=== PATIENT | male | born 1965 | race African-American/Black ===

== ENCOUNTER 2016-10-28 10:37 | Inpatient (IN) | payer OTHER ==
--- NOTE | 2016-10-28 11:08 | PDOC ---
Attending Attestation - Resident Resident Name: WendyYeyo - ED Attending Attestation I have performed the following: I have examined & evaluated the patient, The case was reviewed & discussed with the resident, I agree w/resident's findings & plan, Exceptions are as noted - HPI HPI: 51 yo M history severe COPD, previously on the transplant list on [place] ( removed due to positive tobacco, now attempting to get back on) sent by Dr. Craft after he was seen in the office for increasing SOB, worsening cough. He was desatting to 75% with minimal exertion (just with speaking), requiring oxygen. He states that he chronically coughs, but now has worsening yellow sputum. Sent for IV abx, bronchodilators, given the severe hypoxia in the office. - Physicial Exam PE: GENERAL: Awake, alert, and fully oriented, in no acute distress HEAD: No signs of trauma EYES: PERRLA, EOMI, sclera anicteric, conjunctiva clear ENT: Auricles normal inspection, hearing grossly normal, nares patent, oropharynx clear without exudates. Dry mucosa NECK: Normal ROM, supple, no lymphadenopathy, JVD, or masses LUNGS: Dec air entry B/L, intermittent hacking cough. No wheezes, rales. + Scattered rhonchi. HEART: Regular rate and rhythm, normal S1 and S2, no murmurs, rubs or gallops ABDOMEN: Soft, nontender, normoactive bowel sounds. No guarding, no rebound. No masses EXTREMITIES: Normal range of motion, no edema. No clubbing or cyanosis. No cords, erythema, or tenderness NEUROLOGICAL: Cranial nerves II through XII grossly intact. Normal speech, normal gait SKIN: Warm, Dry, normal turgor, no rashes or lesions noted. 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
[2016-10-28] MEDS ORDERED: CEFTRIAXONE 1 GM in DEXTROSE 5%-WATER - 50 ML IVPB ONE (11:25)
[2016-10-28] MEDS ORDERED: AZITHROMYCIN 250 MG TABLET PO ONE (11:25)
[2016-10-28] MEDS ORDERED: ONDANSETRON 4 MG/2 ML VIAL IVPB ONE (11:27)
[2016-10-28] MEDS ORDERED: AZITHROMYCIN IVPB 250 ML IVPB ONE (12:11)
[2016-10-28] MEDS ORDERED: ONDANSETRON 4 MG/2 ML VIAL ONE (12:12)
[2016-10-28] MEDS ORDERED: CEFTRIAXONE 50 ML ONE (12:12)
[2016-10-28 12:16] LABS: MEAN PLT VOLUME 7.5 fl (7.5-11.1); WHITE BLOOD COUNT 3.6 K/mm3 (4.0-10.0)
[2016-10-28 12:23] LABS: NEUTROPHILS 67.9 % (42.8-82.8); RDW 15.5 % (11.9-15.9)
[2016-10-28 12:27] LABS: BASOPHIL 0.2 % (0-2.0); EOSINOPHIL 1.3 % (0-4.5); MCH 26.3 pg (25.7-33.7); MCHC 31.8 g/dl (32.0-35.9); MEAN CELL VOLUME 82.6 fl (80-96); PLATELET COUNT 264 K/MM3 (134-434)
[2016-10-28] MEDS ORDERED: AZITHROMYCIN IVPB 500 MG in DEXTROSE 5%-WATER - 250 ML IVPB ONE (12:40)
[2016-10-28 12:45] LABS: ALBUMIN 3.9 g/dl (3.4-5.0); ANION GAP 7 (8-16); BILIRUBIN,TOTAL 0.6 mg/dL (0.2-1.0); CALCIUM 9.3 mg/dL (8.5-10.1); CO2 31 mmol/L (21-32); CREATININE 0.9 mg/dL (0.7-1.3); GLUCOSE,RANDOM 81 mg/dL (74-106); SGOT/AST 20 U/L (15-37); SGPT/ALT 16 U/L (12-78); TOT PROT 8.1 g/dl (6.4-8.2)
[2016-10-28 12:48] LABS: ALK PHOS 113 U/L (45-117); CPK 130 IU/L (39-308); TROPONIN I < 0.02 ng/ml (0.00-0.05)
--- NOTE | 2016-10-28 13:24 | PDOC ---
History of Present Illness <Mandy Manley - Last Filed: 10/28/16 13:23> - General History Source: Patient Exam Limitations: No Limitations - History of Present Illness Initial Comments: 10/28/16 14:20 Patient is a 51M with history of COPD/emphysema here today complaining of shortness of breath. He has associated cough, nausea, diarrhea, fevers, and chills. These symptoms have been present for the past 2 weeks, worsening over that time period. He was seen today by Dr Craft because he is a lung transplant candidate who desatted to 75 in the office, who sent him from his office for admission. Patient denies chest pain and abdominal pain. <Yeyo Nguyen - Last Filed: 10/28/16 17:06> - General Chief Complaint: Shortness of Breath Stated Complaint: ADMIT (PCP SENT) sob Time Seen by Provider: 10/28/16 11:06 Past History - Past Medical History COPD: Yes (emphysema) - Psycho/Social/Smoking Cessation Hx Suicidal Ideation: No Smoking History: Former smoker Have you smoked in the past 12 months: Yes If you are a former smoker, when did you quit?: 2017 Information on smoking cessation initiated: No Hx Alcohol Use: No Drug/Substance Use Hx: No Substance Use Type: None <Mandy Manley - Last Filed: 10/28/16 13:23> <Yeyo Nguyen - Last Filed: 10/28/16 17:06> - Past Medical History Allergies/Adverse Reactions: Allergies Allergy/AdvReac Type Severity Reaction Status Date / Time No Known Allergies Allergy Verified 10/28/16 10:48 Home Medications: Ambulatory Orders Albuterol Sulfate Inhaler - [Ventolin Hfa Inhaler -] 1 - 2 inh PO Q4H 10/28/16 Tiotropium [place] [Spiriva] 1 inh IH DAILY 10/28/16 *Physical Exam - Vital Signs Last Vital Signs Temp Pulse Resp BP Pulse Ox 98.6 F 90 20 124/71 93 L 10/28/16 10:46 10/28/16 10:46 10/28/16 10:46 10/28/16 10:46 10/28/16 10:46 <Mandy Manley - Last Filed: 10/28/16 13:23> - Vital Signs Last Vital Signs Temp Pulse Resp BP Pulse Ox 98.6 F 90 20 124/71 93 L 10/28/16 10:46 10/28/16 10:46 10/28/16 10:46 10/28/16 10:46 10/28/16 10:46 - Physical Exam Comments: 10/28/16 15:27 GENERAL/CONSTITUTIONAL: Positive for fever and weakness. HEAD, EYES, EARS, NOSE AND THROAT: No change in vision. No sore throat. CARDIOVASCULAR: No chest pain. Positive for shortness of breath RESPIRATORY: Positive for cough and wheezing GASTROINTESTINAL: Positive for nausea and diarrhea. Negative for vomiting GENITOURINARY: No dysuria, frequency, or change in urination. SKIN: No rash NEUROLOGIC: Positive for headache. No loss of consciousness, or change in strength/sensation. HEMATOLOGIC/LYMPHATIC: No anemia, easy bleeding, or history of blood clots. ALLERGIC/IMMUNOLOGIC: No hives or skin allergy. <Yeyo Nguyen - Last Filed: 10/28/16 17:06> ED Treatment Course - LABORATORY CBC & Chemistry Diagram: 10/28/16 12:05 10/28/16 12:05 - ADDITIONAL ORDERS Additional order review: Laboratory Results 10/28/16 10/28/16 12:05 12:00 Sodium 139 Potassium 4.1 Chloride 101 Carbon Dioxide 31 Anion Gap 7 L BUN 9 Creatinine 0.9 Creat Clearance w eGFR > 60 Random Glucose 81 Lactic Acid 1.1 Calcium 9.3 Total Bilirubin 0.6 AST 20 ALT 16 Alkaline Phosphatase 113 Creatine Kinase 130 Troponin I < 0.02 Total Protein 8.1 Albumin 3.9 10/28/16 12:05 RBC 4.15 MCV 82.6 MCHC 31.8 L RDW 15.5 MPV 7.5 Neutrophils % 67.9 Lymphocytes % 20.9 Monocytes % 9.7 Eosinophils % 1.3 Basophils % 0.2 - Medications Given in the ED: ED Medications Discontinued Medications Generic Name Dose Route Start Last Admin Trade Name Freq PRN Reason Stop Dose Admin Azithromycin 500 mg 10/28/16 11:25 10/28/16 13:04 Zithromax - PO 10/28/16 11:26 Not Given ONCE ONE Ceftriaxone Sodium 1 gm/ 50 mls @ 100 mls/hr 10/28/16 11:25 10/28/16 12:20 Dextrose IVPB 10/28/16 11:54 100 mls/hr ONCE ONE Administration Ondansetron HCl 4 mg 10/28/16 11:27 10/28/16 12:20 Zofran Injection IVPB 10/28/16 11:28 4 mg ONCE ONE Administration <Mandy Manley - Last Filed: 10/28/16 13:23> - LABORATORY CBC & Chemistry Diagram: 10/28/16 12:05 10/28/16 12:05 - ADDITIONAL ORDERS Additional order review: Laboratory Results 10/28/16 10/28/16 12:05 12:00 Sodium 139 Potassium 4.1 Chloride 101 Carbon Dioxide 31 Anion Gap 7 L BUN 9 Creatinine 0.9 Creat Clearance w eGFR > 60 Random Glucose 81 Lactic Acid 1.1 Calcium 9.3 Total Bilirubin 0.6 AST 20 ALT 16 Alkaline Phosphatase 113 Creatine Kinase 130 Troponin I < 0.02 Total Protein 8.1 Albumin 3.9 10/28/16 12:05 RBC 4.15 MCV 82.6 MCHC 31.8 L RDW 15.5 MPV 7.5 Neutrophils % 67.9 Lymphocytes % 20.9 Monocytes % 9.7 Eosinophils % 1.3 Basophils % 0.2 - RADIOLOGY Radiology Studies Ordered: Category Date Time Status CHEST X-RAY PORTABLE* [RAD] Stat Radiology 10/28/16 11:24 Completed - Medications Given in the ED: ED Medications Discontinued Medications Generic Name Dose Route Start Last Admin Trade Name Keith PRN Reason Stop Dose Admin Acetaminophen 650 mg 10/28/16 13:39 10/28/16 13:47 Tylenol - PO 10/28/16 13:40 650 mg ONCE ONE Administration Albuterol/Ipratropium 1 amp 10/28/16 13:30 10/28/16 13:48 Duoneb - NEB 10/28/16 14:16 1 amp Q15M [facility] Administration Azithromycin 500 mg 10/28/16 11:25 10/28/16 13:04 Zithromax - PO 10/28/16 11:26 Not Given ONCE ONE Ceftriaxone Sodium 1 gm/ 50 mls @ 100 mls/hr 10/28/16 11:25 10/28/16 12:20 Dextrose IVPB 10/28/16 11:54 100 mls/hr ONCE ONE Administration Azithromycin 500 mg/ Dextrose 250 mls @ 250 mls/hr 10/28/16 12:40 10/28/16 13: 04 IVPB 10/28/16 13:39 250 mls/hr ONCE ONE Administration Ondansetron HCl 4 mg 10/28/16 11:27 10/28/16 12:20 Zofran Injection IVPB 10/28/16 11:28 4 mg ONCE ONE Administration <Yeyo Nguyen - Last Filed: 10/28/16 17:06> Medical Decision Making - Medical Decision Making 10/28/16 15:29 Patient is a 51M with history of COPD/emphysema here today and complaining of shortness of breath. Prior CT reviewed and patient discussed with Dr Craft. Patient has history of extensive COPD/emphysema, with symptoms concerning for pneumonia. Vital signs stable and normal. Will do CBC, CMP, BC, Lactate, CXR and ECG. Will treat with ceftriaxone and azithromycin. Given tylenol for headache and zofran for nausea. 10/28/16 15:31 CBC shows WBC 3.6, otherwise normal. CMP normal. Lactate normal. BC pending. ECG shows normal sinus rhythm, normal rate, normal axis. QTc 431, PA 174. T wave inversions in V2 and V3, no ST elevations. No prior EKG in system to compare to. 10/28/16 16:[address] Craft for inpatient treatment due to increasing SOB and O2 requirement to maintain saturation. Desatting to low 90s with conversation while on nasal cannula. <Yeyo Nguyen - Last Filed: 10/28/16 17:06> *DC/Admit/Observation/Transfer - Discharge Dispostion Admit: Yes <Mandy Manley - Last Filed: 10/28/16 13:23> <Yeyo Nguyen - Last Filed: 10/28/16 17:06> Diagnosis at time of Disposition: Pneumonia Qualifiers: Pneumonia type: due to unspecified organism Laterality: right Lung location: lower lobe of lung Qualified Code(s): J18.1 - Lobar pneumonia, unspecified organism - Discharge Dispostion Condition at time of disposition: Guarded - Referrals
[2016-10-28] MEDS ORDERED: ACETAMINOPHEN 325 MG TABLET (FP) PO ONE (13:39)
[2016-10-28] MEDS ORDERED: ALBUTEROL SO4 2.5/IPRATROPIUM 0.5 INH SOL 3 ML VIAL.NEB. NEB ONE (13:40)
[2016-10-28] MEDS ORDERED: ACETAMINOPHEN 325 MG TABLET (FP) ONE (13:41)
[2016-10-28] MEDS: ALBUTEROL SO4 2.5/IPRATROPIUM 0.5 INH SOL 3 ML VIAL.NEB. NEB SCH ×5 (13:42→21:34)
--- NOTE | 2016-10-28 15:44 | EKG ---
Test Reason : Blood Pressure : / mmHG Vent. Rate : 072 BPM Atrial Rate : 072 BPM P-R Int : 174 ms QRS Dur : 094 ms QT Int : 394 ms P-R-T Axes : 045 -08 022 degrees QTc Int : 431 ms NORMAL SINUS RHYTHM ANTERIOR INFARCT , AGE UNDETERMINED ABNORMAL ECG NO PREVIOUS ECGS AVAILABLE Confirmed by SOHAIL ACOSTA, HORACE ([id number]) on 10/28/2016 3:44:31 PM Referred By: Confirmed By:HORACE SAUCEDA MD
[2016-10-28 18:22] VITALS: BMI 24.0
[2016-10-28] MEDS ORDERED: PNEUMOC 13-VAL CONJ-DIP CRM/PF 0.5 ML DISP.SYRIN IM ONE (18:47)
--- NOTE | 2016-10-28 22:08 | CONSULT ---
Consultation: REQUESTING PROVIDER: CONSULT REQUEST: We have been asked to medically evaluate this patient for shortness of breath. HISTORY OF PRESENT ILLNESS: Pt is a 51 y/o M with PMH COPD, PONCE, Pulm HTN who presented to outpatient office with shortness of breath. Pt is admitted for acute respiratory failure. Pt was desatting to 75% in the office and requires O2 to maintain saturation. Pt has progressive fibrotic lung disease and is waiting for lung transplant. In office, pt was very short of breath and had cough productive of small amounts of clear sputum. Denies nausea, vomiting, diarrhea, dysuria. REVIEW OF SYSTEMS: CONSTITUTIONAL: Absent: fever, chills, diaphoresis, generalized weakness, malaise, loss of appetite, weight change HEENT: Absent: rhinorrhea, nasal congestion, throat pain, throat swelling, difficulty swallowing, mouth swelling, ear pain, eye pain, visual changes CARDIOVASCULAR: Absent: chest pain, syncope, palpitations, irregular heart rate, lightheadedness , peripheral edema RESPIRATORY: cough, shortness of breath Absent: , dyspnea with exertion, orthopnea, wheezing, stridor, hemoptysis GASTROINTESTINAL: Absent: abdominal pain, abdominal distension, nausea, vomiting, diarrhea, constipation, melena, hematochezia GENITOURINARY: Absent: dysuria, frequency, urgency, hesitancy, hematuria, flank pain, genital pain MUSCULOSKELETAL: Absent: myalgia, arthralgia, joint swelling, back pain, neck pain SKIN: Absent: rash, itching, pallor HEMATOLOGIC/IMMUNOLOGIC: Absent: easy bleeding, easy bruising, lymphadenopathy, frequent infections ENDOCRINE: Absent: unexplained weight gain, unexplained weight loss, heat intolerance, cold intolerance NEUROLOGIC: Absent: headache, focal weakness or paresthesias, dizziness, unsteady gait, seizure, mental status changes, bladder or bowel incontinence PSYCHIATRIC: Absent: anxiety, depression, suicidal or homicidal ideation, hallucinations. PHYSICAL EXAMINATION Vital Signs - 24 hr 10/28/16 10/28/16 18:17 18:32 Temperature 98.6 F Pulse Rate 98 H Respiratory 18 Rate Blood Pressure 128/78 O2 Sat by Pulse 99 Oximetry (%) GENERAL: Awake, alert, and fully oriented, in some respiratory distress. HEAD: Normal with no signs of trauma. EYES: extraocular movements intact, sclera anicteric, conjunctiva clear. No lid lag. EARS, NOSE, THROAT: nares patent, oropharynx clear without exudates. Moist mucous membranes. NECK: Normal range of motion, supple without lymphadenopathy, JVD, or masses. LUNGS: b/l air entry with some crackles. No wheezes. No accessory muscle use. HEART: Regular rate and rhythm, normal S1 and S2 without murmur, rub or gallop. ABDOMEN: Soft, nontender, not distended, normoactive bowel sounds, no guarding, no rebound, no masses. No hepatomegaly or splenomegaly. MUSCULOSKELETAL: Normal range of motion at all joints. No bony deformities or tenderness. No CVA tenderness. UPPER EXTREMITIES: 2+ pulses, warm, well-perfused. No cyanosis. No clubbing. Cap refill <2 seconds. No peripheral edema. LOWER EXTREMITIES: 2+ pulses, warm, well-perfused. No calf tenderness. No peripheral edema. NEUROLOGICAL: Cranial nerves II-XII intact. Normal speech. Normal gait. PSYCHIATRIC: Cooperative. Good eye contact. Appropriate mood and affect. SKIN: Warm, dry, normal turgor, no rashes or lesions noted. Active Medications Generic Name Dose Route Start Last Admin Trade Name Freq PRN Reason Stop Dose Admin Acetaminophen 650 mg 10/28/16 19:20 Tylenol - PO Q4H PRN TEMP >101 Albuterol/Ipratropium 1 amp 10/28/16 22:00 10/28/16 21:34 Duoneb - NEB 1 amp Q4HWA [facility] Administration Azithromycin 500 mg 10/29/16 10:00 Zithromax 500mg Ivpb (Pre-Docked) IVPB DAILY [facility] Budesonide/Formoterol Fumarate 2 puff 10/28/16 19:30 Symbicort 80/4.5mcg - IH Q12H [facility] Ceftriaxone Sodium 1 gm/ 50 mls @ 100 mls/hr 10/29/16 10:00 Dextrose IVPB DAILY [facility] Methylprednisolone Sodium Succinate 40 mg 10/28/16 19:30 Solu-Medrol - IVPB Q6H [facility] ASSESSMENT/PLAN: Pt is a 51 y/o M with PMH COPD, PONCE, Pulm HTN who presented to outpatient office with shortness of breath admitted for respiratory failure. #respiratory failure -O2 -monitor saturation -CT surg consult for possible temporizing procedure - pt waiting for lung transplant -emperic ABx given in ED to cover possible PNA Dispo: We will continue to follow the patient. Thank you for this consultative opportunity. Win Bueno MD PGY-1, Pulmonology service Visit type - Emergency Visit Emergency Visit: No - New Patient This patient is new to me today: No - Critical Care Critical Care patient: No
[2016-10-28] MEDS: methylPREDNISolone NA SUCC 40 MG/1 ML VIAL IVPB SCH (22:43)
[2016-10-28] MEDS: BUDESONIDE/FORMETEROL FUMARATE 80/4.5 mcg INHALER IH SCH (22:44)
[2016-10-29] MEDS: methylPREDNISolone NA SUCC 40 MG/1 ML VIAL IVPB SCH ×5 (02:39→21:06)
[2016-10-29] MEDS: ALBUTEROL SO4 2.5/IPRATROPIUM 0.5 INH SOL 3 ML VIAL.NEB. NEB SCH ×6 (06:52→22:36)
[2016-10-29] MEDS: BUDESONIDE/FORMETEROL FUMARATE 80/4.5 mcg INHALER IH SCH ×2 (06:55→18:49)
[2016-10-29] MEDS: ACETAMINOPHEN 325 MG TABLET (FP) PO PRN ×2 (06:57→21:06)
[2016-10-29] MEDS ORDERED: cefTRIAXone SODIUM 1 GM VIAL ONE (09:22)
[2016-10-29] MEDS ORDERED: DEXTROSE 5%-WATER - 50 ML IVPB ONE (09:22)
[2016-10-29] MEDS ORDERED: AZITHROMYCIN IVPB 500 MG/250 ML D5W PRE-DOCKED IVPB SCH (10:00)
--- NOTE | 2016-10-29 10:33 | PN ---
Physical Exam: SUBJECTIVE: Patient seen and examined at bedside. No acute events overnight. Pt sitting comfortably in bed, currently getting neb treatment. Pt complains of bilateral mild foot pain, which he states sometimes limits his ability to walk for extended periods. Denies cough, fever, malaise, dysuria. OBJECTIVE: Vital Signs Period Temp Pulse Resp BP Sys/Phillips Pulse Ox Last 24 Hr 97.9 F-98.7 F 82-98 18-20 119-151/78-97 95-99 GENERAL: The patient is awake, alert, and fully oriented, in no acute distress. HEAD: Normal with no signs of trauma. EYES: sclera anicteric, conjunctiva clear. No ptosis. ENT: oropharynx clear without exudates, moist mucous membranes. NECK: Trachea midline, full range of motion, supple. LUNGS: Breath sounds equal, clear to auscultation bilaterally, no wheezes, no crackles, no accessory muscle use. HEART: Regular rate and rhythm, S1, S2 without murmur, rub or gallop. ABDOMEN: Soft, nontender, nondistended, normoactive bowel sounds, no guarding, no rebound, no hepatosplenomegaly, no masses. EXTREMITIES: 2+ pulses, warm, well-perfused, no edema. NEUROLOGICAL: Cranial nerves II through XII grossly intact. Normal speech, gait not observed. PSYCH: Normal mood, normal affect. SKIN: Warm, dry, normal turgor, no rashes or lesions noted Active Medications Generic Name Dose Route Start Last Admin Trade Name Freq PRN Reason Stop Dose Admin Acetaminophen 650 mg 10/28/16 19:20 10/29/16 06:57 Tylenol - PO 650 mg Q4H PRN Administration TEMP >101 Albuterol/Ipratropium 1 amp 10/28/16 22:00 10/29/16 06:52 Duoneb - NEB 1 amp Q4HWA [facility] Administration Azithromycin 500 mg 10/29/16 10:00 Zithromax 500mg Ivpb (Pre-Docked) IVPB DAILY [facility] Budesonide/Formoterol Fumarate 2 puff 10/28/16 19:30 10/29/16 06:55 Symbicort 80/4.5mcg - IH 2 puff Q12H [facility] Administration Ceftriaxone Sodium 1 gm/ 50 mls @ 100 mls/hr 10/29/16 10:00 Dextrose IVPB DAILY [facility] Methylprednisolone Sodium Succinate 40 mg 10/29/16 09:32 10/29/16 09:47 Solu-Medrol - IVPB 40 mg Q6H-IV [facility] Administration ASSESSMENT/PLAN: Pt is a 51 y/o M with PMH COPD, PONCE, Pulm HTN who presented to outpatient office with shortness of breath admitted for respiratory failure. #respiratory failure -O2 -nebs -rocephin -monitor saturation -Pt waiting for lung transplant -pending CT surg consult for possible temporizing procedure Dispo: We will continue to follow the patient. Thank you for this consultative opportunity. Win Bueno MD PGY-1, Pulmonology service Visit type - Emergency Visit Emergency Visit: No - New Patient This patient is new to me today: No - Critical Care Critical Care patient: No - Discharge Referral Referred to [facility] No
[2016-10-29] MEDS: CEFTRIAXONE 1 GM in DEXTROSE 5%-WATER - 50 ML IVPB SCH (10:50)
--- NOTE | 2016-10-29 14:12 | PN ---
Teaching Attending Note Name of Resident: Win Bueno ATTENDING PHYSICIAN STATEMENT I saw and evaluated the patient. I reviewed the resident's note and discussed the case with the resident. I agree with the resident's findings and plan as documented. PULMONARY ALERT,COMFORTABLE AT REST,-CP,+ COUGH. O2 SAT 97% ON NASAL O2 IMP ACUTE ON CHRONIC HYPOXEMIC RESPIRATORY FAILURE END STAGE COPD ?ILD PONCE PULMONARY HTN ANXIETY PLAN INHALED BRONCHODILATORS O2 CPAP A1A LEVEL XANAX .[address] HARVEY Problem List - Problems (1) Acute and chronic respiratory failure with hypoxia Code(s): J96.21 - ACUTE AND CHRONIC RESPIRATORY FAILURE WITH HYPOXIA (2) COPD (chronic obstructive pulmonary disease) Code(s): J44.9 - CHRONIC OBSTRUCTIVE PULMONARY DISEASE, UNSPECIFIED (3) Sleep apnea Code(s): G47.30 - SLEEP APNEA, UNSPECIFIED (4) Pulmonary hypertension Code(s): I27.2 - OTHER SECONDARY PULMONARY HYPERTENSION
[2016-10-29] MEDS: ROFLUMILAST 500 MCG TABLET PO SCH (16:53)
[2016-10-29] MEDS: ALPRAZolam 0.25 MG TABLET PO PRN (16:55)
[2016-10-30] MEDS: methylPREDNISolone NA SUCC 40 MG/1 ML VIAL IVPB SCH ×3 (03:09→22:00)
[2016-10-30] MEDS: ACETAMINOPHEN 325 MG TABLET (FP) PO PRN ×3 (03:56→21:18)
[2016-10-30] MEDS: ALBUTEROL SO4 2.5/IPRATROPIUM 0.5 INH SOL 3 ML VIAL.NEB. NEB SCH ×5 (06:48→23:16)
--- NOTE | 2016-10-30 07:38 | CONSULT ---
Consult - text type - Consultation Consultation Note: Thoracic Surgery Consultation: Pt seen and examined. Consulted for possible bullectomy in this 51 year-old with COPD and progressive pulmonary fibrosis (s/p biopsy on left side) who is listed for lung transplant at [facility] and recently delayed for transplant due to positive nicotine test. He has been admitted for acute on chronic respiratory failure with hypoxia. I have reviewed his images and seen and examined the patient. I don't think he would benefit significantly from a temporizing procedure for the following risk factors: pulmonary hypertension, inability to tolerate single-lung ventilation (necessitating thoracotomy rather than VATS), not ideal anatomy (has superior segment bullae surrounded by smaller bullae down to hilum increasing risk of bronchopleural fistula). He has a high mortality risk (>10%) with any surgery except lung transplantation. I have spent 40 minutes on this consultation with greater than 50% involved in counseling and coordination of care including taking a history, physical, reviewing his images, and discussion with Dr. Craft.
[2016-10-30] MEDS: BUDESONIDE/FORMETEROL FUMARATE 80/4.5 mcg INHALER IH SCH ×2 (08:52→19:30)
[2016-10-30] MEDS ORDERED: cefTRIAXone SODIUM 1 GM VIAL ONE (08:58)
[2016-10-30] MEDS ORDERED: DEXTROSE 5%-WATER - 50 ML IVPB ONE (08:58)
[2016-10-30] MEDS: CEFTRIAXONE 1 GM in DEXTROSE 5%-WATER - 50 ML IVPB SCH (09:01)
[2016-10-30] MEDS: ROFLUMILAST 500 MCG TABLET PO SCH (09:39)
--- NOTE | 2016-10-30 11:20 | PN ---
Progress Note (short form) - Note Progress Note: PULMONARY Still with dyspnea and desaturates with exertion. +cough with yellow sputum in AM but nonproductive as the day progresses. No fevers. Last Vital Signs Temp Pulse Resp BP Pulse Ox 97.7 F 78 20 140/80 99 10/30/16 10:00 10/30/16 10:00 10/30/16 10:00 10/30/16 10:00 10/30/16 09:50 Gen: NAD at rest Heart: RRR Lung: basilar rales Abd: soft, nontender Ext: no edema CBC, BMP 10/28/16 12:05 10/28/16 12:05 Active Medications Acetaminophen (Tylenol -) 650 mg PO Q4H PRN PRN Reason: TEMP >101 Last Admin: 10/30/16 08:51 Dose: 650 mg Albuterol/Ipratropium (Duoneb -) 1 amp NEB Q4HWA [facility] Last Admin: 10/30/16 09:50 Dose: 1 amp Alprazolam (Xanax -) 0.25 mg PO Q6H PRN PRN Reason: ANXIETY Last Admin: 10/29/16 16:55 Dose: 0.25 mg Budesonide/Formoterol Fumarate (Symbicort 80/4.5mcg -) 2 puff IH Q12H [facility] Last Admin: 10/30/16 08:52 Dose: 2 puff Ceftriaxone Sodium 1 gm/ (Dextrose) 50 mls @ 100 mls/hr IVPB DAILY [facility] Last Admin: 10/30/16 09:01 Dose: 100 mls/hr Azithromycin 500 mg/ Dextrose 250 mls @ 250 mls/hr IVPB DAILY [facility] Methylprednisolone Sodium Succinate (Solu-Medrol -) 40 mg IVPB Q6H-IV [facility] Last Admin: 10/30/16 09:01 Dose: 40 mg Roflumilast (Daliresp -) 500 mcg PO DAILY [facility] Last Admin: 10/30/16 09:39 Dose: 500 mcg A/P Acute on Chronic Hypoxic Respiratory Failure End Stage COPD Acute COPD Exacerbation r/o Pneumonia Interstitial Lung Disease Pulmonary HTN PONCE Anxiety - continue antibiotics - continue medrol, can decrease to q8h - inhaled bronchodilators - antianxiolytics prn - O2 to keep SpO2 >90% - cough suppressants at night - DVT prophylaxis
[2016-10-30] MEDS: AZITHROMYCIN IVPB 500 MG in DEXTROSE 5%-WATER - 250 ML IVPB SCH (12:18)
[2016-10-30] MEDS ORDERED: methylPREDNISolone NA SUCC 40 MG/1 ML VIAL IVPB SCH (18:00)
[2016-10-30] MEDS: ALPRAZolam 0.25 MG TABLET PO PRN (21:17)
[2016-10-30] MEDS: guaiFENesin/CODEINE 5 ML UNIT-DOSE CUPS PO PRN (21:18)
[2016-10-31] MEDS ORDERED: methylPREDNISolone NA SUCC 40 MG/1 ML VIAL IVPB SCH (01:03)
[2016-10-31] MEDS: ALPRAZolam 0.25 MG TABLET PO PRN ×2 (03:55→21:08)
[2016-10-31] MEDS: guaiFENesin/CODEINE 5 ML UNIT-DOSE CUPS PO PRN ×3 (03:55→18:16)
[2016-10-31] MEDS: methylPREDNISolone NA SUCC 40 MG/1 ML VIAL IVPB SCH ×3 (06:13→21:03)
[2016-10-31] MEDS: ALBUTEROL SO4 2.5/IPRATROPIUM 0.5 INH SOL 3 ML VIAL.NEB. NEB SCH ×5 (06:48→21:44)
[2016-10-31 08:03] LABS: BASOPHIL 0.2 % (0-2.0); MCH 26.2 pg (25.7-33.7); MCHC 31.8 g/dl (32.0-35.9); MEAN CELL VOLUME 82.3 fl (80-96); MEAN PLT VOLUME 7.6 fl (7.5-11.1); NEUTROPHILS 84.5 % (42.8-82.8); PLATELET COUNT 287 K/MM3 (134-434); RDW 15.4 % (11.9-15.9)
[2016-10-31 08:26] LABS: ANION GAP 7 (8-16); CO2 31 mmol/L (21-32); CREATININE 0.9 mg/dL (0.7-1.3); GLUCOSE,RANDOM 106 mg/dL (74-106); MAGNESIUM 2.6 mg/dL (1.8-2.4); PHOSPHOROUS 3.3 mg/dL (2.5-4.9)
[2016-10-31] MEDS ORDERED: DEXTROSE 5%-WATER - 50 ML IVPB ONE (09:21)
[2016-10-31] MEDS ORDERED: PT OWN MED DRAWER 7, Y5N ONE (09:21)
[2016-10-31] MEDS ORDERED: cefTRIAXone SODIUM 1 GM VIAL ONE (09:21)
[2016-10-31] MEDS: BUDESONIDE/FORMETEROL FUMARATE 80/4.5 mcg INHALER IH SCH ×2 (09:30→21:03)
[2016-10-31] MEDS: ENOXAPARIN NA (PORCINE) 40 MG/0.4 ML DISP.SYRIN SQ SCH (09:31)
[2016-10-31] MEDS: AZITHROMYCIN IVPB 500 MG in DEXTROSE 5%-WATER - 250 ML IVPB SCH (09:32)
[2016-10-31] MEDS: CEFTRIAXONE 1 GM in DEXTROSE 5%-WATER - 50 ML IVPB SCH (09:38)
[2016-10-31] MEDS: ROFLUMILAST 500 MCG TABLET PO SCH (09:39)
--- NOTE | 2016-10-31 11:39 | PN ---
Progress Note (short form) - Note Progress Note: PULMONARY +cough with white sputum in AM, feels cough suppressant is helping. No fevers. Last Vital Signs Temp Pulse Resp BP Pulse Ox 98.6 F 88 20 145/87 95 10/31/16 09:27 10/31/16 09:27 10/31/16 09:27 10/31/16 09:27 10/31/16 09:00 Gen: NAD at rest Heart: RRR Lung: basilar rales Abd: soft, nontender Ext: no edema CBC, BMP 10/31/16 07:20 10/31/16 07:20 Active Medications Acetaminophen (Tylenol -) 650 mg PO Q4H PRN PRN Reason: TEMP >101 Last Admin: 10/30/16 21:18 Dose: 650 mg Albuterol/Ipratropium (Duoneb -) 1 amp NEB Q4HWA [facility] Last Admin: 10/31/16 09:50 Dose: 1 amp Alprazolam (Xanax -) 0.25 mg PO Q6H PRN PRN Reason: ANXIETY Last Admin: 10/31/16 03:55 Dose: 0.25 mg Budesonide/Formoterol Fumarate (Symbicort 80/4.5mcg -) 2 puff IH Q12H [facility] Last Admin: 10/31/16 09:30 Dose: 2 puff Enoxaparin Sodium (Lovenox -) 40 mg SQ DAILY [facility] Last Admin: 10/31/16 09:31 Dose: 40 mg Guaifenesin/Codeine Phosphate (Robitussin Ac -) 5 ml PO TID PRN PRN Reason: COUGH Last Admin: 10/31/16 09:31 Dose: 5 ml Ceftriaxone Sodium 1 gm/ (Dextrose) 50 mls @ 100 mls/hr IVPB DAILY [facility] Last Admin: 10/31/16 09:38 Dose: 100 mls/hr Azithromycin 500 mg/ Dextrose 250 mls @ 250 mls/hr IVPB DAILY [facility] Last Admin: 10/31/16 09:32 Dose: 250 mls/hr Methylprednisolone Sodium Succinate (Solu-Medrol -) 40 mg IVPB TID [facility] Last Admin: 10/31/16 06:13 Dose: 40 mg Roflumilast (Daliresp -) 500 mcg PO DAILY [facility] Last Admin: 10/31/16 09:39 Dose: 500 mcg A/P Acute on Chronic Hypoxic Respiratory Failure End Stage COPD Acute COPD Exacerbation r/o Pneumonia Interstitial Lung Disease Pulmonary HTN PONCE Anxiety - continue antibiotics - continue medrol q8h - will decrease to q12h in AM if continues to improve - inhaled bronchodilators - antianxiolytics prn - O2 to keep SpO2 >90% - cough suppressants at night - DVT prophylaxis
[2016-11-01] MEDS: ACETAMINOPHEN 325 MG TABLET (FP) PO PRN ×3 (04:37→22:59)
[2016-11-01] MEDS: guaiFENesin/CODEINE 5 ML UNIT-DOSE CUPS PO PRN ×2 (04:37→22:59)
[2016-11-01] MEDS: methylPREDNISolone NA SUCC 40 MG/1 ML VIAL IVPB SCH ×4 (06:19→21:27)
[2016-11-01] MEDS: ALPRAZolam 0.25 MG TABLET PO PRN (06:20)
[2016-11-01] MEDS: ALBUTEROL SO4 2.5/IPRATROPIUM 0.5 INH SOL 3 ML VIAL.NEB. NEB SCH ×5 (06:23→22:53)
--- NOTE | 2016-11-01 09:35 | PN ---
Teaching Attending Note Name of Resident: Win Bueno ATTENDING PHYSICIAN STATEMENT I saw and evaluated the patient. I reviewed the resident's note and discussed the case with the resident. I agree with the resident's findings and plan as documented. THIS IS TO CONFIRM THAT THE NOTE WRITTEN BY THE PGY-1 WAS REVIEWED BY ME ON 10/28. Cisco BROWN MD
--- NOTE | 2016-11-01 09:56 | PN ---
Progress Note (short form) - Note Progress Note: PULMONARY SUBJECTIVE IMPROVEMENT VSS/A ANICTERIC DIMINISHED B/L S1S2 BS+ NO EDEMA LABS/MEDS/NOTES/IMAGING REVIEWED Acute on Chronic Hypoxic Respiratory Failure End Stage COPD Acute COPD Exacerbation r/o Pneumonia Interstitial Lung Disease Pulmonary HTN PONCE Anxiety - continue antibiotics - continue medrol - inhaled bronchodilators - antianxiolytics prn - O2 to keep SpO2 >90% - cough suppressants at night - DVT prophylaxis Cisco BROWN MD
[2016-11-01] MEDS ORDERED: cefTRIAXone SODIUM 1 GM VIAL ONE (10:47)
[2016-11-01] MEDS ORDERED: PT OWN MED DRAWER 7, Y5N ONE ×4 (10:47→20:54)
[2016-11-01] MEDS ORDERED: DEXTROSE 5%-WATER - 50 ML IVPB ONE (10:47)
[2016-11-01] MEDS: CEFTRIAXONE 1 GM in DEXTROSE 5%-WATER - 50 ML IVPB SCH (10:54)
[2016-11-01] MEDS: ROFLUMILAST 500 MCG TABLET PO SCH (10:55)
[2016-11-01] MEDS: BUDESONIDE/FORMETEROL FUMARATE 80/4.5 mcg INHALER IH SCH ×2 (10:55→21:27)
[2016-11-01] MEDS: ENOXAPARIN NA (PORCINE) 40 MG/0.4 ML DISP.SYRIN SQ SCH (10:55)
[2016-11-01] MEDS: AZITHROMYCIN IVPB 500 MG in DEXTROSE 5%-WATER - 250 ML IVPB SCH (12:27)
[2016-11-01] MEDS: amLODIPine BESYLATE 5 MG TABLET (FP) PO SCH (18:13)
[2016-11-02] MEDS: guaiFENesin/CODEINE 5 ML UNIT-DOSE CUPS PO PRN ×3 (03:43→22:18)
[2016-11-02] MEDS: ALPRAZolam 0.25 MG TABLET PO PRN ×3 (03:43→22:19)
[2016-11-02] MEDS: ACETAMINOPHEN 325 MG TABLET (FP) PO PRN ×3 (03:43→22:18)
[2016-11-02] MEDS: ALBUTEROL SO4 2.5/IPRATROPIUM 0.5 INH SOL 3 ML VIAL.NEB. NEB SCH ×2 (06:15→10:38)
[2016-11-02] MEDS: methylPREDNISolone NA SUCC 40 MG/1 ML VIAL IVPB SCH ×2 (06:30→22:15)
[2016-11-02] MEDS: BUDESONIDE/FORMETEROL FUMARATE 80/4.5 mcg INHALER IH SCH ×2 (07:47→21:12)
[2016-11-02] MEDS ORDERED: cefTRIAXone SODIUM 1 GM VIAL ONE (09:49)
[2016-11-02] MEDS ORDERED: PT OWN MED DRAWER 7, Y5N ONE ×2 (09:49→20:27)
[2016-11-02] MEDS ORDERED: DEXTROSE 5%-WATER - 50 ML IVPB ONE (09:50)
[2016-11-02] MEDS: amLODIPine BESYLATE 5 MG TABLET (FP) PO SCH (10:22)
[2016-11-02] MEDS: CEFTRIAXONE 1 GM in DEXTROSE 5%-WATER - 50 ML IVPB SCH (10:23)
[2016-11-02] MEDS: ROFLUMILAST 500 MCG TABLET PO SCH (10:24)
[2016-11-02] MEDS: ENOXAPARIN NA (PORCINE) 40 MG/0.4 ML DISP.SYRIN SQ SCH (10:24)
[2016-11-02] MEDS: AZITHROMYCIN IVPB 500 MG in DEXTROSE 5%-WATER - 250 ML IVPB SCH (10:56)
--- NOTE | 2016-11-02 11:14 | PN ---
Progress Note (short form) - Note Progress Note: PULMONARY States breathing is improving but has not really ambulated. +occasional nonproductive cough. No fevers or chills. Last Vital Signs Temp Pulse Resp BP Pulse Ox 98.3 F 88 20 137/92 99 11/02/16 10:19 11/02/16 10:39 11/02/16 10:19 11/02/16 10:19 11/02/16 10:39 Gen: NAD at rest Heart: RRR Lung: basilar rales Abd: soft, nontender Ext: no edema CBC, BMP 10/31/16 07:20 10/31/16 07:20 Active Medications Acetaminophen (Tylenol -) 650 mg PO Q4H PRN PRN Reason: TEMP >101 Last Admin: 11/02/16 10:22 Dose: 650 mg Alprazolam (Xanax -) 0.25 mg PO Q6H PRN PRN Reason: ANXIETY Last Admin: 11/02/16 10:23 Dose: 0.25 mg Amlodipine Besylate (Norvasc -) 5 mg PO DAILY [facility] Last Admin: 11/02/16 10:22 Dose: 5 mg Budesonide/Formoterol Fumarate (Symbicort 80/4.5mcg -) 2 puff IH Q12H [facility] Last Admin: 11/02/16 07:47 Dose: 2 puff Enoxaparin Sodium (Lovenox -) 40 mg SQ DAILY [facility] Last Admin: 11/02/16 10:24 Dose: 40 mg Guaifenesin/Codeine Phosphate (Robitussin Ac -) 5 ml PO TID PRN PRN Reason: COUGH Last Admin: 11/02/16 10:23 Dose: 5 ml Ceftriaxone Sodium 1 gm/ (Dextrose) 50 mls @ 100 mls/hr IVPB DAILY [facility] Last Admin: 11/02/16 10:23 Dose: 100 mls/hr Azithromycin 500 mg/ Dextrose 250 mls @ 250 mls/hr IVPB DAILY [facility] Last Admin: 11/02/16 10:56 Dose: 250 mls/hr Methylprednisolone Sodium Succinate (Solu-Medrol -) 40 mg IVPB TID [facility] Last Admin: 11/02/16 06:30 Dose: 40 mg Roflumilast (Daliresp -) 500 mcg PO DAILY [facility] Last Admin: 11/02/16 10:24 Dose: 500 mcg A/P Acute on Chronic Hypoxic Respiratory Failure End Stage COPD Acute COPD Exacerbation r/o Pneumonia Interstitial Lung Disease Pulmonary HTN PONCE Anxiety - complete antibiotics - will decrease medrol to q12h - inhaled bronchodilators - antianxiolytics prn - O2 to keep SpO2 >90% - cough suppressants at night - DVT prophylaxis - rehab/PT eval - possible discharge tomorrow if ambulating
[2016-11-03] MEDS: guaiFENesin/CODEINE 5 ML UNIT-DOSE CUPS PO PRN ×2 (03:12→13:42)
[2016-11-03] MEDS: ACETAMINOPHEN 325 MG TABLET (FP) PO PRN ×2 (03:15→10:08)
[2016-11-03] MEDS ORDERED: PT OWN MED DRAWER 7, Y5N ONE ×2 (08:24→09:11)
[2016-11-03] MEDS: BUDESONIDE/FORMETEROL FUMARATE 80/4.5 mcg INHALER IH SCH (08:27)
[2016-11-03] MEDS ORDERED: DEXTROSE 5%-WATER - 50 ML IVPB ONE (09:12)
[2016-11-03] MEDS ORDERED: cefTRIAXone SODIUM 1 GM VIAL ONE (09:12)
[2016-11-03] MEDS: CEFTRIAXONE 1 GM in DEXTROSE 5%-WATER - 50 ML IVPB SCH (09:13)
[2016-11-03] MEDS: ENOXAPARIN NA (PORCINE) 40 MG/0.4 ML DISP.SYRIN SQ SCH (09:13)
[2016-11-03] MEDS: ROFLUMILAST 500 MCG TABLET PO SCH (09:13)
[2016-11-03] MEDS: amLODIPine BESYLATE 5 MG TABLET (FP) PO SCH (09:13)
[2016-11-03] MEDS: ALPRAZolam 0.25 MG TABLET PO PRN (10:09)
[2016-11-03] MEDS: methylPREDNISolone NA SUCC 40 MG/1 ML VIAL IVPB SCH (10:09)
[2016-11-03] MEDS: AZITHROMYCIN IVPB 500 MG in DEXTROSE 5%-WATER - 250 ML IVPB SCH (10:43)
--- NOTE | 2016-11-03 11:06 | PN ---
Progress Note (short form) - Note Progress Note: PULMONARY/DISCHARGE NOTE SUBJECTIVE IMPROVEMENT VSS/A ANICTERIC DIMINISHED B/L S1S2 BS+ NO EDEMA LABS/MEDS/NOTES/IMAGING REVIEWED Acute on Chronic Hypoxic Respiratory Failure End Stage COPD Acute COPD Exacerbation Interstitial Lung Disease Pulmonary HTN PONCE Anxiety - change to oral prednisone - inhaled bronchodilators - antianxiolytics prn - O2 to keep SpO2 >90% - cough suppressants at night - Discharge with f/u outpatient Cisco BROWN MD
--- NOTE | 2016-11-03 11:07 | DS ---
Physical Examination Vital Signs: Vital Signs Temperature 98.6 F 11/02/16 22:00 Pulse Rate 82 11/02/16 22:00 Respiratory Rate 20 11/02/16 22:00 Blood Pressure 133/94 11/02/16 22:00 O2 Sat by Pulse Oximetry (%) 97 11/02/16 21:00 Constitutional: Yes: Calm Eyes: Yes: EOM Intact HENT: Yes: Normocephalic Neck: Yes: Trachea Midline Cardiovascular: Yes: Regular Rate and Rhythm Respiratory: Yes: Diminished Gastrointestinal: Yes: Normal Bowel Sounds ...Rectal Exam: Yes: Deferred Renal/: Yes: WNL Breast(s): Yes: WNL Musculoskeletal: Yes: WNL Extremities: Yes: WNL Edema: No Labs: CBC, BMP 10/31/16 07:20 10/31/16 07:20 REST REVIEWED PLEASE SEE LAST NOTE DATED 11/03/2016 Cisco BROWN MD Discharge Summary Reason For Visit: PNEUMONIA Current Active Problems Acute and chronic respiratory failure with hypoxia (Acute) COPD (chronic obstructive pulmonary disease) (Acute) Pneumonia (Acute) Pulmonary hypertension (Acute) Sleep apnea (Acute) Condition: Guarded - Instructions Referrals: Conor Brown MD [Primary Care Provider] - - Home Medications Comprehensive Discharge Medication List: Ambulatory Orders Albuterol Sulfate Inhaler - [Ventolin Hfa Inhaler -] 1 - 2 inh PO Q4H 10/28/16 Tiotropium [place] [Spiriva] 1 inh IH DAILY 10/28/16
[2016-11-03 13:55] VITALS: BP 149/90; PULSE 107; TEMP 98.6
== END 2016-11-03 15:41 | disposition home or self-care (01) | DRG 189 ==
LOC: JER 10:37 → UNDOADMOB 13:24 → INTOOBSV 13:24 → JERBED 13:24 → J5S 13:24 → OBSVTOIN 13:24 → J5S 17:29 → JERBED 17:29 → UNDOADMOB 18:05 → J5S 18:05
PROVIDERS: ADMIT Specialist; ATTEND Specialist
PROC: 5A09457 Assistance with Respiratory Ventilation, 24-96 Consecutive Hours, Continuous Positive Airway Pressure (ICD-10-PCS; principal; 2016-11-02)
DX: J96.21 Acute and chronic respiratory failure with hypoxia (principal); J44.1 Chronic obstructive pulmonary disease with (acute) exacerbation; J84.9 Interstitial pulmonary disease, unspecified; Z87.891 Personal history of nicotine dependence; Z76.82 Awaiting organ transplant status; G47.33 Obstructive sleep apnea (adult) (pediatric); I27.2 Other secondary pulmonary hypertension; J43.9 Emphysema, unspecified; F41.9 Anxiety disorder, unspecified
CPT/HCPCS: 36415; 71010-TC; 80048; 80053; 83605; 83735; 84100; 84484; 85025; 87040; 90670; 93005; 93010; 94640; 94660; 97116-GP; 97161-GP; 99285-25

== ENCOUNTER 2016-11-29 13:49 | Emergency (ER) | payer OTHER ==
[2016-11-29 14:01] VITALS: BP 106/80; PULSE 104; TEMP 97.5; BMI 24.8
--- NOTE | 2016-11-29 14:56 | PDOC ---
History of Present Illness - General Chief Complaint: Pain, Acute Stated Complaint: PAIN Time Seen by Provider: 11/29/16 14:18 History Source: Patient Exam Limitations: No Limitations - History of Present Illness Initial Comments: 11/29/16 15:48 My chief complaint: Pain in bilateral fingers and knee pain 2 days. History of present illness: Patient is a 51 year old male with a history of COPD here today complaining of having pain in proximal aspect of bilateral hands and anterior knee since yesterday. Patient reports that he took acetaminophen for relief of pain which did help. 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 Patient denies any recent injury. Patient denies any numbness of hands or legs. Timing/Duration: intermittent Severity: moderate Associated Symptoms: reports: other (b/l jt pain b/l fingers, b/l knee) Past History - Past Medical History Allergies/Adverse Reactions: Allergies Allergy/AdvReac Type Severity Reaction Status Date / Time No Known Allergies Allergy Verified 11/29/16 13:57 Home Medications: Ambulatory Orders Albuterol Sulfate Inhaler - [Ventolin HFA Inhaler -] 1 - 2 inh PO Q4H 10/28/16 Tiotropium [place] [Spiriva] 1 inh IH DAILY 10/28/16 Alprazolam 0.25 mg PO ASDIR 11/29/16 Amlodipine Besylate 5 mg PO ASDIR 11/29/16 Naproxen [Naprosyn -] 375 mg PO Q12H PRN #14 tablet 11/29/16 Prednisone [Deltasone -] 20 mg PO DAILY 11/29/16 Roflumilast [Daliresp -] 500 mcg PO DAILY 11/29/16 COPD: Yes (emphysema) - Immunization History Immunization Up to Date: Yes - Suicide/Smoking/Psychosocial Hx Smoking History: Former smoker Have you smoked in the past 12 months: Yes If you are a former smoker, when did you quit?: 2017 Information on smoking cessation initiated: No Hx Alcohol Use: No Drug/Substance Use Hx: No Substance Use Type: None Review of Systems - Review of Systems Able to Perform ROS?: Yes Constitutional: No: Symptoms Reported HEENTM: No: Symptoms Reported Respiratory: No: Symptoms reported Cardiac (ROS): No: Symptoms Reported ABD/GI: No: Symptoms Reported : No: Symptoms Reported Musculoskeletal: Yes: Joint Pain (b/l pip jt fingers, b/l knee since yesterday ) . No: Joint Swelling Integumentary: No: Symptoms Reported Neurological: No: Symptoms reported *Physical Exam - Vital Signs Last Vital Signs Temp Pulse Resp BP Pulse Ox 97.5 F L 104 H 18 106/80 94 L 11/29/16 13:58 11/29/16 13:58 11/29/16 13:58 11/29/16 13:58 11/29/16 13:58 - Physical Exam General Appearance: Yes: Appropriately Dressed Respiratory/Chest: positive: Lungs Clear, Normal Breath Sounds, Decreased Breath Sounds. negative: Chest Tender, Respiratory Distress Vascular Pulses: Dorsalis-Pedis (R): 4+, Doralis-Pedis (L): 4+ Comments:: 11/29/16 14:53 b/l radial 4+ Extremity: positive: Normal Capillary Refill, Normal Inspection, Normal Range of Motion. negative: Swelling (b/l pip jts ) Integumentary: positive: Normal Color Neurologic: positive: Alert, Normal Response, Motor Strength 5/5 (hands, legs), Respond to painful stimul (b/l hands, b/l knees ), Responsive. negative: Numbness, Sensory Deficit (b/l hands and legs) Deep Tendon Reflexes: Knee (L): 3+, Knee (R): 3+ Medical Decision Making - Medical Decision Making 11/29/16 15:51 Patient is a 51 year old male with a history of COPD here today complaining of having pain in proximal aspect of bilateral hands and anterior knee since yesterday. Patient reports that he took acetaminophen for relief of pain which did help. 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 Patient denies any recent injury. Patient denies any numbness of hands or legs. b/l finger pain r/o crystal abnormality b/l knee pain PLAN: xray b/l hands DJD mild xray b/l knees mild to moderate DJD b/l per Dr. Singh giron 375 mg bid prn pain # 14 tabs follow up with orthopedist 11/29/16 15:53 *DC/Admit/Observation/Transfer Diagnosis at time of Disposition: Pain in finger of both hands Knee pain, bilateral Qualifiers: Chronicity: acute Qualified Code(s): M25.561 - Pain in right knee; M25.561 - Pain in right knee; M25.562 - Pain in left knee; M25.562 - Pain in left knee - Discharge Dispostion Disposition: HOME Condition at time of disposition: Stable - Prescriptions Prescriptions: Naproxen [Naprosyn -] 375 mg PO Q12H PRN #14 tablet PRN Reason: Pain - Referrals Referrals: Conor Craft MD [Primary Care Provider] - Erick Rangel MD [Staff Physician] - - Patient Instructions Additional Instructions: Avoid strenuous activities or exercise Follow-up with your primary care provider as soon as possible for further evaluation follow-up with orthopedist as soon as possible for further evaluation Return to emergency room if symptoms worsen or new symptoms develop Patient voiced understanding of discharge instructions and all questions were answered - Post Discharge Activity Forms/Work/School Notes: Back to Work
[2016-11-29] MEDS ORDERED: NAPROXEN 500 MG TABLET (FP) ONE (16:01)
[2016-11-29] MEDS ORDERED: NAPROXEN 500 MG TABLET (FP) PO ONE (16:38)
== END 2016-11-29 16:38 | disposition home or self-care (01) ==
LOC: JERFT 13:49
DX: M79.642 Pain in left hand (principal); M79.641 Pain in right hand; M25.562 Pain in left knee; M25.561 Pain in right knee; M19.90 Unspecified osteoarthritis, unspecified site; X50.0XXA Overexertion from strenuous movement or load, initial encounter; Y93.H3 Activity, building and construction; Y92.89 Other specified places as the place of occurrence of the external cause; Y99.0 Civilian activity done for income or pay; J44.9 Chronic obstructive pulmonary disease, unspecified
CPT/HCPCS: 73130-TC-LT; 73130-TC-RT; 73562-TC-LT; 73562-TC-RT; 99281-25

== ENCOUNTER 2017-01-14 04:07 | Observation (INO) | payer OTHER ==
--- NOTE | 2017-01-14 05:20 | PDOC ---
History of Present Illness - General Chief Complaint: Respiratory Distress Stated Complaint: RIGHT SIDE PAIN Time Seen by Provider: 01/14/17 04:39 History Source: Patient Exam Limitations: No Limitations - History of Present Illness Initial Comments: 01/14/17 05:12 Patient is a 51M with history of COPD/emphysema currently applying for lung transplant on 24 hour home oxygen here today complaining of right sided chest pain for the past 24 hours. He says that a sharp stabbing pain suddenly developed yesterday morning at rest. He denies fevers, chills, cough, nausea, vomiting, and diaphoresis. He does endorse some increased shortness of breath. He denies leg swelling. 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 He denies history of blood clots and hemoptysis. He was admitted for pneumonia in early October for a week. Past History - Past Medical History Allergies/Adverse Reactions: Allergies Allergy/AdvReac Type Severity Reaction Status Date / Time No Known Allergies Allergy Verified 01/14/17 04:30 Home Medications: Ambulatory Orders Albuterol Sulfate Inhaler - [Ventolin HFA Inhaler -] 1 - 2 inh PO Q4H 10/28/16 Tiotropium [place] [Spiriva] 1 inh IH DAILY 10/28/16 Alprazolam 0.25 mg PO ASDIR 11/29/16 Amlodipine Besylate 5 mg PO ASDIR 11/29/16 Naproxen [Naprosyn -] 375 mg PO Q12H PRN #14 tablet 11/29/16 Prednisone [Deltasone -] 20 mg PO DAILY 11/29/16 Roflumilast [Daliresp -] 500 mcg PO DAILY 11/29/16 COPD: Yes (emphysema) - Immunization History Immunization Up to Date: Yes - Suicide/Smoking/Psychosocial Hx Smoking History: Never smoked Have you smoked in the past 12 months: No If you are a former smoker, when did you quit?: 2017 Information on smoking cessation initiated: No Hx Alcohol Use: No Drug/Substance Use Hx: No Substance Use Type: None Review of Systems - Review of Systems Comments:: 01/14/17 05:22 GENERAL/CONSTITUTIONAL: No fever or chills. No weakness. HEAD, EYES, EARS, NOSE AND THROAT: No change in vision. No sore throat. CARDIOVASCULAR: Positive for chest pain and shortness of breath. RESPIRATORY: No cough, wheezing, or hemoptysis. GASTROINTESTINAL: No nausea, vomiting, diarrhea or constipation. GENITOURINARY: No dysuria, frequency, or change in urination. MUSCULOSKELETAL: No joint or muscle swelling or pain. No neck or back pain. SKIN: No rash NEUROLOGIC: Positive for headache. Negative for vertigo, loss of consciousness, or change in strength/sensation. ENDOCRINE: No increased thirst. No abnormal weight change HEMATOLOGIC/LYMPHATIC: No anemia, easy bleeding, or history of blood clots. ALLERGIC/IMMUNOLOGIC: No hives or skin allergy. *Physical Exam - Vital Signs Last Vital Signs Temp Pulse Resp BP Pulse Ox 130 H 20 135/104 91 L 01/14/17 04:31 01/14/17 04:31 01/14/17 04:31 01/14/17 04:31 - Physical Exam Comments: 01/14/17 05:23 GENERAL: Awake, alert, and fully oriented, in acute distress HEAD: No signs of trauma, normocephalic, atraumatic EYES: PERRLA, EOMI, sclera anicteric, conjunctiva clear ENT: Auricles normal inspection, hearing grossly normal, nares patent, oropharynx clear without exudates. Moist mucosa NECK: Normal ROM, supple, no lymphadenopathy, JVD, or masses LUNGS: Tachypneic, in respiratory distress, accessory muscle usage, coarse breath sounds bilaterally with scattered wheezes HEART: Tachycardic, regular normal S1 and S2, no murmurs, rubs or gallops, peripheral pulses normal and equal bilaterally. ABDOMEN: Soft, nontender, normoactive bowel sounds. No guarding, no rebound. No masses EXTREMITIES: Normal inspection, Normal range of motion, no edema. No clubbing or cyanosis. NEUROLOGICAL: Cranial nerves II through XII grossly intact. Normal speech, no focal sensorimotor deficits SKIN: Warm, Dry, normal turgor, no rashes or lesions noted. ED Treatment Course - LABORATORY CBC & Chemistry Diagram: 01/14/17 05:00 01/14/17 05:00 - RADIOLOGY Radiology Studies Ordered: Category Date Time Status CHEST CTA [CT] Stat CT Scan 01/14/17 05:00 Ordered CHEST X-RAY PORTABLE* [RAD] Stat Radiology 01/14/17 04:51 Ordered Medical Decision Making - Medical Decision Making 01/14/17 05:26 Patient is a 51M with history of COPD/emphysema causing respiratory failure currently applying for lung transplant here today with chest pain. Vital signs notable for tachycardia and tachypneic, meeting sirs criteria. Septic workup initiated with BNP added. Blood pressure stable, afebrile. Differential diagnosis includes, but is not limited to: COPD exacerbation, pneumonia, PE, ND. EKG shows sinus tachycardia at 122 bpm, regular rhythm. No ST elevations. T wave inversions in V2 and V3. Consistent p-wave morphology; not consistent with MAT. Concerning EKG. 01/14/17 06:38 Laboratory Tests 01/14/17 01/14/17 01/14/17 05:00 05:00 05:00 WBC 8.5 Hgb 12.8 D Hct 40.0 D Plt Count 308 INR 1.12 Troponin I < 0.02 B-Natriuretic Peptide 01/14/17 05:00 WBC Hgb Hct Plt Count INR Troponin I B-Natriuretic Peptide 357.70 H CBC normal. INR normal. Trop neg. BNP is mildly elevated. 01/14/17 06:39 CXR shows right and left sided bullae with possible right lower lobe infiltrate. CTA pending will evaluate for PE and further evaluate lungs for infectious process. 01/14/17 07:01 Flu neg, pending CTA, signed out to Dr Galvan. *DC/Admit/Observation/Transfer Diagnosis at time of Disposition: Shortness of breath - Referrals Referrals: Conor Craft MD [Primary Care Provider] - - Patient Instructions - Post Discharge Activity
[2017-01-14 05:33] LABS: EOS % 2.1 % (0-4.5); MEAN CELL VOLUME 87.5 fl (80-96); MEAN PLT VOLUME 7.3 fl (7.5-11.1); NEUT % 70.8 % (42.8-82.8); PLATELET COUNT 308 K/MM3 (134-434); RDW 16.5 % (11.9-15.9); VENOUS BLOOD GAS HCO3 31.1 meq/L (19-25); VENOUS PH 7.4 (7.32-7.42); WHITE BLOOD COUNT 8.5 K/mm3 (4.0-10.0)
[2017-01-14 05:47] LABS: INR 1.12 (0.82-1.09); PROTHROMBIN TIME (PATIENT) 12.7 SEC (9.98-11.88)
[2017-01-14 05:49] LABS: ACTIVATED PTT 36.8 SECONDS (26.9-34.4)
[2017-01-14 06:15] LABS: ALBUMIN 3.2 g/dl (3.4-5.0); ANION GAP 9 (8-16); CALCIUM 8.9 mg/dL (8.5-10.1); CO2 29 mmol/L (21-32); CREATININE 1.1 mg/dL (0.7-1.3); GLUCOSE,RANDOM 108 mg/dL (74-106); SGOT/AST 21 U/L (15-37); SGPT/ALT 21 U/L (12-78)
[2017-01-14 06:19] LABS: ALK PHOS 88 U/L (45-117); BILIRUBIN,TOTAL 0.5 mg/dL (0.2-1.0); CPK 111 IU/L (39-308); TOT PROT 6.8 g/dl (6.4-8.2); TROPONIN I < 0.02 ng/ml (0.00-0.05)
--- NOTE | 2017-01-14 06:39 | PDOC ---
Attending Attestation - Resident Resident Name: Yeyo Nguyen - ED Attending Attestation I have performed the following: I have examined & evaluated the patient, The case was reviewed & discussed with the resident, I agree w/resident's findings & plan, Exceptions are as noted
[2017-01-14] MEDS ORDERED: ACETAMINOPHEN 325 MG TABLET (FP) ONE (08:10)
[2017-01-14] MEDS ORDERED: ACETAMINOPHEN 325 MG TABLET (FP) PO ONE (08:10)
--- NOTE | 2017-01-14 10:00 | EKG ---
Test Reason : Blood Pressure : / mmHG Vent. Rate : 122 BPM Atrial Rate : 122 BPM P-R Int : 148 ms QRS Dur : 080 ms QT Int : 288 ms P-R-T Axes : 047 -17 041 degrees QTc Int : 410 ms POOR DATA QUALITY, INTERPRETATION MAY BE ADVERSELY AFFECTED SINUS TACHYCARDIA POSSIBLE LEFT ATRIAL ENLARGEMENT NONSPECIFIC T WAVE ABNORMALITY ABNORMAL ECG WHEN COMPARED WITH ECG OF 28-OCT-2016 13:02, VENT. RATE HAS INCREASED BY 50 BPM Confirmed by ROSEANN RIZZO MD ([id number]) on 01/14/2017 9:59:57 AM Referred By: Confirmed By:ROSEANN RIZZO MD
--- NOTE | 2017-01-14 12:09 | PDOC ---
*Physical Exam - Vital Signs Last Vital Signs Temp Pulse Resp BP Pulse Ox 98 F 109 H 24 132/87 97 01/14/17 08:04 01/14/17 08:04 01/14/17 08:04 01/14/17 08:04 01/14/17 08:04 - Physical Exam Comments: 01/14/17 12:09 General Appearance: Nourished. No Apparent Distress HEENT: EOMI, KHADRA. Neck: No Cervical Lymphadenopathy Respiratory/Chest: Lungs Clear, Normal Breath Sounds. Diffuse mild crackles bilaterally with diffuse wheezing. No Rhonchi, Cardiovascular: Regular Rhythm, Regular Rate. No Murmur, Gallops, Rubs Gastrointestinal/Abdominal: Normal Bowel Sounds, Soft. No Guarding, Rebound, Tenderness Musculoskeletal: No CVA Tenderness Extremity: Normal Capillary Refill Integumentary: Normal Color, Dry, Warm Neurologic: Fully Oriented, Alert, Normal Mood/Affect, Normal Response, ED Treatment Course - LABORATORY CBC & Chemistry Diagram: 01/14/17 05:00 01/14/17 05:00 - ADDITIONAL ORDERS Additional order review: Laboratory Results 01/14/17 01/14/17 01/14/17 05:15 05:00 05:00 PT with INR INR PTT (Actin FS) VBG pH POC VBG pCO2 POC VBG pO2 Mixed VBG HCO3 Sodium Potassium Chloride Carbon Dioxide Anion Gap BUN Creatinine Creat Clearance w eGFR Random Glucose Lactic Acid 0.9 Calcium Total Bilirubin AST ALT Alkaline Phosphatase Creatine Kinase Troponin I B-Natriuretic Peptide 357.70 H Total Protein Albumin Blood Type A POSITIVE Antibody Screen Negative 01/14/17 01/14/17 01/14/17 05:00 05:00 05:00 PT with INR 12.70 H INR 1.12 PTT (Actin FS) 36.8 H VBG pH 7.40 POC VBG pCO2 50.7 POC VBG pO2 26.7 L Mixed VBG HCO3 31.1 H Sodium 140 Potassium 4.5 Chloride 102 Carbon Dioxide 29 Anion Gap 9 BUN 11 Creatinine 1.1 D Creat Clearance w eGFR > 60 Random Glucose 108 H Lactic Acid Calcium 8.9 Total Bilirubin 0.5 AST 21 ALT 21 D Alkaline Phosphatase 88 D Creatine Kinase 111 Troponin I < 0.02 B-Natriuretic Peptide Total Protein 6.8 Albumin 3.2 L Blood Type Antibody Screen 01/14/17 05:00 Influenza Types A,B Antigen (NAKITA) - Final Nasopharyngeal Swab - Final 01/14/17 05:00 RBC 4.57 MCV 87.5 MCHC 32.0 RDW 16.5 H MPV 7.3 L Neutrophils % 70.8 Lymphocytes % 16.5 D Monocytes % 9.6 D Eosinophils % 2.1 D Basophils % 1.0 D - Medications Given in the ED: ED Medications Discontinued Medications Generic Name Dose Route Start Last Admin Trade Name Freq PRN Reason Stop Dose Admin Acetaminophen 650 mg 01/14/17 08:10 01/14/17 08:16 Tylenol - PO 01/14/17 08:11 650 mg ONCE ONE Administration Progress Note - Progress Note Progress Note: Received sign out from Dr. Nguyen. The patient is a 51 year old male with a history of severe COPD who presents with right sided chest pain and SOB. Patient initially presented with an O2 saturation of 78% now 94% on 4L NC. Patient is pending a CTA to r/o PE and will require observation vs full admission for further management. Medical Decision Making - Medical Decision Making 01/14/17 12:05 We discussed the case with Dr. Craft who requested that we observation admit to the hospitalist team. We feel the patient requires observation admission given his significant COPD and oxygen requirement in the setting of chest pain with worsening SOB. *DC/Admit/Observation/Transfer Diagnosis at time of Disposition: Shortness of breath COPD (chronic obstructive pulmonary disease) Qualifiers: COPD type: unspecified COPD Qualified Code(s): J44.9 - Chronic obstructive pulmonary disease, unspecified - Discharge Dispostion Condition at time of disposition: Guarded Admit: Yes - Referrals Referrals: Conor Craft MD [Primary Care Provider] - - Patient Instructions - Post Discharge Activity
[2017-01-14] MEDS ORDERED: ALBUTEROL SO4 2.5/IPRATROPIUM 0.5 INH SOL 3 ML VIAL.NEB. NEB ONE ×2 (12:16→12:49)
[2017-01-14] MEDS ORDERED: predniSONE 20 MG TABLET (UD) PO ONE (12:16)
[2017-01-14] MEDS ORDERED: predniSONE 20 MG TABLET (UD) ONE (12:49)
[2017-01-14] MEDS ORDERED: ACETAMINOPHEN 325 MG TABLET (FP) PO PRN (13:30)
[2017-01-14] MEDS ORDERED: ALBUTEROL SO4 2.5/IPRATROPIUM 0.5 INH SOL 3 ML VIAL.NEB. NEB PRN (13:36)
--- NOTE | 2017-01-14 13:38 | HP ---
CHIEF COMPLAINT: Shortness of breath PCP: Dr. 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 When patient arrived he was found to have an oxygen saturation in the 70's% and placed on venti-max. When speaking to the patient he reports that for the last 24 hours he felt as if someone "punched him in the chest and it feels sore." He reports yesterday he was at work when he started feeling sick but states he "felt some sickness creeping up" and he had to sit in the car for over two hours on his oxygen. Patient states he is on continuous oxygen at home but at work he uses the pulse oxygen and takes breaks in between to go to his car for continuous. When he arrived at the parking lot in the hospital he got off the continuous, got into the wheel chair without any oxygen and by the time he arrived at the door steps of the hospital he had been off his oxygen for a few minutes, which is around the time he begins to desaturate when he is off the oxygen. Patient otherwise denies chest pain, nausea, vomiting, fever, chills, night sweats, cough, abdominal pain, headaches, hemoptysis. Patient reports being around sick people everyday at work. Denies having a flu shot or pneumonia shot. Patient goes to respiratory therapy 3 times a week. Patient reports being admitted for pneumonia September of this year. He was started on 20/09 home 29 April 2016 ER course was notable for: (1) Duo-Neb given (2) Prednisone 60mg po given (3) CTA and negative for PE Recent Travel: Denies PAST MEDICAL HISTORY: Severe COPD on 4L 02 and applying for lung transplant, Emphysema, and HTN PAST SURGICAL HISTORY: ORIF of right Tibia/Fibula (1982), Left and right hernia repair (within 5 years), Lung Biopsy (April 2016) Social History: Smoking: Former Smoker. Quit 6 months ago, used to smoke 1 PPD every three days. Started at the age of 26 Alcohol: Denies Drugs: Denies Family History: Mother- Lupus Father- Unknown Allergies: No Known Allergies Allergy (Verified 01/14/17 04:30) HOME MEDICATIONS: Home Medications Medication Instructions Recorded Albuterol Sulfate Inhaler - 1 - 2 inh PO Q4H 10/28/16 [Ventolin HFA Inhaler -] Tiotropium Parsons [Spiriva] 1 inh IH DAILY 10/28/16 Alprazolam 0.25 mg PO ASDIR 11/29/16 Amlodipine Besylate 5 mg PO ASDIR 11/29/16 Naproxen [Naprosyn -] 375 mg PO Q12H PRN #14 tablet 11/29/16 Prednisone [Deltasone -] 20 mg PO DAILY 11/29/16 Roflumilast [Daliresp -] 500 mcg PO DAILY 11/29/16 REVIEW OF SYSTEMS CONSTITUTIONAL: generalized weakness Absent: fever, chills, diaphoresis, malaise, loss of appetite, weight change HEENT: Absent: rhinorrhea, nasal congestion, throat pain, throat swelling, difficulty swallowing, mouth swelling, ear pain, eye pain, visual changes CARDIOVASCULAR: Absent: chest pain, syncope, palpitations, irregular heart rate, lightheadedness , peripheral edema RESPIRATORY: shortness of breath Absent: cough, dyspnea with exertion, orthopnea, wheezing, stridor, hemoptysis GASTROINTESTINAL: Absent: abdominal pain, abdominal distension, nausea, vomiting, diarrhea, constipation, melena, hematochezia GENITOURINARY: Absent: dysuria, frequency, urgency, hesitancy, hematuria, flank pain, genital pain MUSCULOSKELETAL: Absent: myalgia, arthralgia, joint swelling, back pain, neck pain SKIN: Absent: rash, itching, pallor HEMATOLOGIC/IMMUNOLOGIC: Absent: easy bleeding, easy bruising, lymphadenopathy, frequent infections ENDOCRINE: Absent: unexplained weight gain, unexplained weight loss, heat intolerance, cold intolerance NEUROLOGIC: Absent: headache, focal weakness or paresthesias, dizziness, unsteady gait, seizure, mental status changes, bladder or bowel incontinence PSYCHIATRIC: Absent: anxiety, depression, suicidal or homicidal ideation, hallucinations. PHYSICAL EXAMINATION Vital Signs - 24 hr 01/14/17 01/14/17 01/14/17 04:31 05:30 08:04 Temperature 98.7 F 98 F Pulse Rate 130 H Pulse Rate [ 109 H Right Radial] Respiratory 20 24 Rate Blood Pressure 135/104 Blood Pressure 132/87 [Left Arm] O2 Sat by Pulse 91 L 97 Oximetry (%) GENERAL: Awake, alert, and fully oriented, in no acute distress. HEAD: Normal with no signs of trauma. EYES: Pupils equal, round and reactive to light, extraocular movements intact, sclera anicteric, conjunctiva clear. EARS, NOSE, THROAT: Oropharynx clear without exudates. Dry mucous membranes. NECK: Normal range of motion, supple without lymphadenopathy, JVD, or masses. LUNGS: Coarse breath sounds throughout lung bases bilaterally with mild inspiratory wheezes. On 4L 02 NC. No crackles. No accessory muscle use. HEART: Tachycardic with regular rhythm, normal S1 and S2 without murmur, rub or gallop. ABDOMEN: Soft, nontender, not distended, normoactive bowel sounds, no guarding, no rebound, no masses. MUSCULOSKELETAL: No CVA tenderness. UPPER EXTREMITIES: No peripheral edema. LOWER EXTREMITIES: 2+ pulses, warm, well-perfused. No calf tenderness. No peripheral edema. (-) Shad's sign NEUROLOGICAL: Cranial nerves II-XII intact. Normal speech. Motor strength 5/5 throughout. Sensory intact PSYCHIATRIC: Cooperative. Good eye contact. Appropriate mood and affect. SKIN: Warm, dry, normal turgor, no rashes or lesions noted, normal capillary refill. Laboratory Results - last 24 hr 01/14/17 01/14/17 01/14/17 05:00 05:00 05:00 WBC 8.5 RBC 4.57 Hgb 12.8 D Hct 40.0 D MCV 87.5 MCH 28.0 MCHC 32.0 RDW 16.5 H Plt Count 308 MPV 7.3 L Neutrophils % 70.8 Lymphocytes % 16.5 D Monocytes % 9.6 D Eosinophils % 2.1 D Basophils % 1.0 D PT with INR 12.70 H INR 1.12 PTT (Actin FS) 36.8 H VBG pH 7.40 POC VBG pCO2 50.7 POC VBG pO2 26.7 L Mixed VBG HCO3 31.1 H Sodium Potassium Chloride Carbon Dioxide Anion Gap BUN Creatinine Creat Clearance w eGFR Random Glucose Lactic Acid Calcium Total Bilirubin AST ALT Alkaline Phosphatase Creatine Kinase Troponin I B-Natriuretic Peptide Total Protein Albumin Blood Type Antibody Screen 01/14/17 01/14/17 01/14/17 05:00 05:00 05:00 WBC RBC Hgb Hct MCV MCH MCHC RDW Plt Count MPV Neutrophils % Lymphocytes % Monocytes % Eosinophils % Basophils % PT with INR INR PTT (Actin FS) VBG pH POC VBG pCO2 POC VBG pO2 Mixed VBG HCO3 Sodium 140 Potassium 4.5 Chloride 102 Carbon Dioxide 29 Anion Gap 9 BUN 11 Creatinine 1.1 D Creat Clearance w eGFR > 60 Random Glucose 108 H Lactic Acid Calcium 8.9 Total Bilirubin 0.5 AST 21 ALT 21 D Alkaline Phosphatase 88 D Creatine Kinase 111 Troponin I < 0.02 B-Natriuretic Peptide 357.70 H Total Protein 6.8 Albumin 3.2 L Blood Type A POSITIVE Antibody Screen Negative 01/14/17 05:15 WBC RBC Hgb Hct MCV MCH MCHC RDW Plt Count MPV Neutrophils % Lymphocytes % Monocytes % Eosinophils % Basophils % PT with INR INR PTT (Actin FS) VBG pH POC VBG pCO2 POC VBG pO2 Mixed VBG HCO3 Sodium Potassium Chloride Carbon Dioxide Anion Gap BUN Creatinine Creat Clearance w eGFR Random Glucose Lactic Acid 0.9 Calcium Total Bilirubin AST ALT Alkaline Phosphatase Creatine Kinase Troponin I B-Natriuretic Peptide Total Protein Albumin Blood Type Antibody Screen IMAGES: Chest X-ray (01/14/17): Extensive COPD. No interval change in comparison to October 28, 2016. No evidence of pneumothorax, pleural effusion, pulmonary consolidations. CTA (01/14/17): 1. No evidence of pulmonary artery embolus through the segmental branches. Enlarged main pulmonary artery is likely secondary to pulmonary artery hypertension. Please correlate clinically. 2. Bilateral lower lobe opacities are compatible with pneumonia in the appropriate clinical setting. Short-term interval follow-up chest CT is recommended after completion of therapy to exclude other processes, including neoplasia. 3 Right hilar and mediastinal lymphadenopathy is grossly similar to 09/23/[address], allowing for differences in technique. If this right hilar adenopathy persists on the short-term follow-up chest CT, then please correlate with PET/CT. 4 Extensive emphysematous changes with numerous large bullae and multifocal fibrotic changes with architectural distortion throughout bilateral lungs appear similar to the prior exam. ASSESSMENT/PLAN: Patient is a 51 year old male who presented for fatigue and increasing shortness of breath. Patient admitted to med/surg for further monitoring and management. Acute on Chronic COPD exaceration -On initial presentation 70's% saturation but when placed on 4L of his home 02 he is now stable at 95% -Given Prednisone 60mg in the ED. Will resume home prednisone dose of 20mg BID -Standing Duo-nebs TID with PRN Q6H -Continuous oxygen and maintain 02 sat >90% -Rapid flu swab negative -Pulmonology consult placed HTN-Controlled -Contine home medication Amlodipine 5mg daily -Continue to monitor BP Anxiety -Continue home medication Xanax 0.25mg TID F/E/N -On no fluids -Electrolytes wnl -Sodium controlled diet Prophylaxis -Moderate risk. Lovenox 40mg SQ for DVT Disposition -Full code -Pulmonology consult placed. Will remain in observation status Visit type - Emergency Visit Emergency Visit: Yes ED Registration Date: 01/14/17 Care time: The patient presented to the Emergency Department on the above date and was hospitalized for further evaluation of their emergent condition. - New Patient This patient is new to me today: Yes Date on this admission: 01/14/17 - Critical Care Critical Care patient: No
[2017-01-14] MEDS: ALBUTEROL SO4 2.5/IPRATROPIUM 0.5 INH SOL 3 ML VIAL.NEB. NEB SCH ×3 (13:59→22:53)
[2017-01-14 14:28] LABS: URINE APPEARANCE CLEAR; URINE BILIRUBIN NEGATIVE (NEGATIVE); URINE BLOOD NEGATIVE (NEGATIVE); URINE COLOR YELLOW; URINE GLUCOSE (UA) NEGATIVE (NEGATIVE); URINE KETONE TRACE (NEGATIVE); URINE NITRITE NEGATIVE (NEGATIVE); URINE PROTEIN NEGATIVE (NEGATIVE); URINE UROBILINOGEN NEGATIVE mg/dL (0.2-1.0)
[2017-01-14 16:16] LABS: CPK 126 IU/L (39-308); TROPONIN I < 0.02 ng/ml (0.00-0.05)
[2017-01-14 16:41] VITALS: BMI 27.1
[2017-01-14] MEDS ORDERED: FLU VACCINE QUAD 60 MCG/0.5 ML (MDV 17-18) IM ONE ×2 (16:42→17:00)
[2017-01-14] MEDS: amLODIPine BESYLATE 5 MG TABLET (FP) PO SCH (17:00)
[2017-01-14] MEDS: ALPRAZolam 0.25 MG TABLET PO SCH ×2 (17:00→21:01)
--- NOTE | 2017-01-14 17:09 | PN ---
Teaching Attending Note Name of Resident: Bela Tapia ATTENDING PHYSICIAN STATEMENT I saw and evaluated the patient. I reviewed the resident's note and discussed the case with the resident. I agree with the resident's findings and plan as documented. SUBJECTIVE:51 yo M with a significant PMHx of severe COPD/emphsema on 4L 02 and applying for lung transplant, and HTN presented to the ER because he just was not feeling right. he states that he is unable to be more specific other than having intermittent chest soreness that was sporadic and not in the same location, coming on at random times of the day not related to activity. they would resolve with massaging of the spot. states he is very tense all the time and sleeps "wrong" states he is compliant with his home oxygen and wears 4L NC at home with continuous oxygen than uses pulse machine when he is out. has a productive cough of white sputum but this has not worsened at all and sputum production is not worse than baseline. states when he was getting out of the car he took his pulse machine but forgot to turn it on. was found to be in the ER at 70% on RA. denies CP, fever, chills, N/V/C/D, recent changes to medication was recently treated for PNA last month OBJECTIVE: Last Vital Signs Temp Pulse Resp BP Pulse Ox 98.1 F 79 20 148/93 98 01/14/17 14:16 01/14/17 15:28 01/14/17 15:28 01/14/17 15:28 01/14/17 15:28 General NAD CV S1 S2 RRR no murmur/rub/gallop +chest wall tenderness Lungs coarse breath sounds throughout, decreased sounds in the bases Abdomen soft NT/ND Extremities no edema Skin diffuse vesicular rash B/L arms not tender, no drainage, ASSESSMENT AND PLAN: 51 yo M with a significant PMHx of severe COPD/emphysema on 4L 02 and applying for lung transplant, and HTN 1. Acute on chronic COPD exacerbation- medicine observation. saturation improved to 95% on 4L NC. CTA negative for PE. shows B/L lower lobe opacities but in the setting of lacking productive cough, afebrile and no leukocytosis would hold abx therapy at this time. cardiac enzymes neg x2. started on prednisone 60mg po. Pulmonary consulted. taper per pulmonary. nebs prn. supplemental oxygen as needed to maintain spO2 >90%. influenza negative. cont inhalers. 2. Diffuse vesicular rash- no pruritis or pain no drainage. was unaware it was there till pointed out to him. would increase exfoliation and proper hygiene. lotions 3. HTN- cont norvasc 4. DVT ppx- lovenox
[2017-01-14 20:37] LABS: URINE LEUK ESTERASE Negative (NEGATIVE)
[2017-01-14] MEDS: predniSONE 20 MG TABLET (UD) PO SCH (21:01)
[2017-01-15] MEDS: ALPRAZolam 0.25 MG TABLET PO SCH ×2 (05:59→13:46)
[2017-01-15] MEDS: ALBUTEROL SO4 2.5/IPRATROPIUM 0.5 INH SOL 3 ML VIAL.NEB. NEB SCH ×2 (06:52→14:04)
[2017-01-15] MEDS: predniSONE 20 MG TABLET (UD) PO SCH (09:44)
[2017-01-15] MEDS: amLODIPine BESYLATE 5 MG TABLET (FP) PO SCH (09:44)
[2017-01-15] MEDS ORDERED: ENOXAPARIN NA (PORCINE) 40 MG/0.4 ML DISP.SYRIN SQ SCH (10:00)
[2017-01-15] MEDS ORDERED: TIOTROPIUM BROMIDE 18 MCG/INH (DEVICE W/ 5 CAPSULES) IH SCH (11:00)
[2017-01-15 11:27] LABS: BASO % 0.5 % (0-2.0); EOS % 0.3 % (0-4.5); MCH 27.7 pg (25.7-33.7); MCHC 31.4 g/dl (32.0-35.9); MEAN PLT VOLUME 7.1 fl (7.5-11.1); NEUT % 77.2 % (42.8-82.8); PLATELET COUNT 310 K/MM3 (134-434); RDW 16.1 % (11.9-15.9); WHITE BLOOD COUNT 9.2 K/mm3 (4.0-10.0)
[2017-01-15 11:45] LABS: CALCIUM 8.8 mg/dL (8.5-10.1)
[2017-01-15 11:50] LABS: ALBUMIN 2.9 g/dl (3.4-5.0); ANION GAP 10 (8-16); BILIRUBIN,TOTAL 0.2 mg/dL (0.2-1.0); CO2 27 mmol/L (21-32); CREATININE 0.8 mg/dL (0.7-1.3); GLUCOSE,RANDOM 124 mg/dL (74-106); MAGNESIUM 2.4 mg/dL (1.8-2.4); SGOT/AST 14 U/L (15-37); SGPT/ALT 18 U/L (12-78); TOT PROT 6.5 g/dl (6.4-8.2)
[2017-01-15 11:53] LABS: ALK PHOS 76 U/L (45-117); TROPONIN I < 0.02 ng/ml (0.00-0.05)
--- NOTE | 2017-01-15 12:36 | CON.PULM ---
Consult Consult Specialty:: PULMONARY Referred by:: SWAPNA Reason for Consultation:: SOB/CHEST PAIN - History of Present Illness Chief Complaint: SOB/RIGHT SIDED CHEST PAIN History of Present Illness: 51 AA MALE FORMER SMOKER, WORKS FOR THE [employer],PREVIOUS [employer] TRANSPLANT LIST CANDIDATE REMOVED WHEN NICOTINE METABOLITES WERE FOUND IN URINE. HE HAS ABSTAINED FROM CIGARETTES FOR PAST 6 MONTHS. WE ARE NOW IN PROCESS OF RE-APPLYING FOR THE TRANSPLANT. HE IS ACTIVELY WORKING AND REQUIRES O2 24/7. HE ALSO HAS OSAS AND IS USING NIPPV. ADMITTED FOR OBSERVATION DUE TO RIGHT SIDED CHEST PAIN WHICH IS MS IN NATURE. CTA RULED OUT FOR PE. - History Source History Provided By: Patient, Medical Record Limitations to Obtaining History: No Limitations - Past Medical History SENIOR FINANCIAL: No: Alzheimer's Cardio/Vascular: No: AFIB Pulmonary: Yes: COPD, O2 Dependent, Pulmonary Fibrosis, Other (END STAGE BULLOUS EMPHYSEMA) Gastrointestinal: No: Ascites Hepatobiliary: No: Cirrhosis Renal/: No: Renal Failure - Alcohol/Substance Use Hx Alcohol Use: No - Smoking History Smoking history: Former smoker Have you smoked in the past 12 months: Yes If you are a former smoker, when did you quit?: April 2016 Home Medications - Allergies Allergies/Adverse Reactions: Allergies Allergy/AdvReac Type Severity Reaction Status Date / Time No Known Allergies Allergy Verified 01/14/17 04:30 - Home Medications Home Medications: Ambulatory Orders Alprazolam 0.25 mg PO TID 11/29/16 Amlodipine Besylate 5 mg PO DAILY 11/29/16 Prednisone [Deltasone -] 20 mg PO BID 11/29/16 Budesonide/Formeterol Fumarate [SYMBICORT 80/4.5mcg -] 2 inh PO BID 01/14/17 Tiotropium [place] [Spiriva] 2 inh IH BID 01/14/17 Family Disease History - Family Disease History Family History: Unremarkable Review of Systems - Review of Systems Constitutional: denies: Fever Eyes: denies: Blurred Vision HENT: denies: Difficult Swallowing Neck: denies: Decreased ROM Cardiovascular: reports: Chest Pain (RIGHT SIDED) Respiratory: reports: Cough, Exercise Intolerance, SOB on Exertion. denies: Hemoptysis, Wheezing Gastrointestinal: denies: Abdominal Pain Genitourinary: denies: Burning Physical Exam Vital Sings: Vital Signs Temperature 97.9 F 11/18/17 07:19 Pulse Rate 92 H 01/15/17 07:19 Respiratory Rate 20 01/15/17 07:19 Blood Pressure 124/78 01/15/17 07:19 O2 Sat by Pulse Oximetry (%) 95 01/15/17 06:00 Constitutional: Yes: Calm Eyes: Yes: EOM Intact HENT: Yes: Normocephalic Neck: Yes: Trachea Midline Cardiovascular: Yes: Regular Rate and Rhythm Respiratory: Yes: Diminished Gastrointestinal: Yes: Soft Edema: LLE: Trace, RLE: Trace Psychiatric: Yes: Alert Labs: CBC, BMP 01/15/17 11:10 01/15/17 11:10 REST REVIEWED Imaging - Results Chest X-ray: Report Reviewed, Image Reviewed Cat Scan: Report Reviewed, Image Reviewed Problem List - Problems (1) COPD (chronic obstructive pulmonary disease) Code(s): J44.9 - CHRONIC OBSTRUCTIVE PULMONARY DISEASE, UNSPECIFIED Qualifiers: COPD type: unspecified COPD Qualified Code(s): J44.9 - Chronic obstructive pulmonary disease, unspecified (2) Acute and chronic respiratory failure with hypoxia Code(s): J96.21 - ACUTE AND CHRONIC RESPIRATORY FAILURE WITH HYPOXIA (3) Pulmonary hypertension Code(s): I27.2 - OTHER SECONDARY PULMONARY HYPERTENSION * DO NOT USE * (4) Sleep apnea Code(s): G47.30 - SLEEP APNEA, UNSPECIFIED Assessment/Plan AGREE WITH CURRENT LINE OF TREATMENT WOULD OPT FOR DISCHARGE HOME TODAY TO CONTINUE HOME MEDS CHEST PAIN IS LIKELY MUSCULOSKELETAL IN NATURE Cisco BROWN MD
[2017-01-15 14:02] VITALS: BP 142/100; PULSE 105; TEMP 98.2
--- NOTE | 2017-01-15 14:14 | DS ---
Physical Exam: SUBJECTIVE: Patient seen and examined OBJECTIVE: Vital Signs Period Temp Pulse Resp BP Sys/Phillips Pulse Ox Last 24 Hr 97.9 F-98.2 F 79-116 20-24 124-148/78-100 94-98 PHYSICAL EXAM GENERAL: The patient is awake, alert, and fully oriented, in no acute distress. HEAD: Normal with no signs of trauma. EYES: PERRL, extraocular movements intact, sclera anicteric, conjunctiva clear. ENT: Ears normal, nares patent, oropharynx clear without exudates, moist mucous membranes. NECK: Trachea midline, full range of motion, supple. LUNGS: Breath sounds equal, clear to auscultation bilaterally, no wheezes, no crackles, no accessory muscle use. HEART: Regular rate and rhythm, S1, S2 without murmur, rub or gallop. ABDOMEN: Soft, nontender, nondistended, normoactive bowel sounds, no guarding, no rebound, no hepatosplenomegaly, no masses. EXTREMITIES: 2+ pulses, warm, well-perfused, no edema. NEUROLOGICAL: Cranial nerves II through XII grossly intact. Normal speech, gait not observed. PSYCH: Normal mood, normal affect. SKIN: Warm, dry, normal turgor, no rashes or lesions noted. LABS Laboratory Results - last 24 hr 01/14/17 01/14/17 01/15/17 12:49 13:45 11:10 WBC 9.2 RBC 4.31 Hgb 11.9 Hct 38.0 MCV 88.0 MCH 27.7 MCHC 31.4 L RDW 16.1 H Plt Count 310 MPV 7.1 L Neutrophils % 77.2 Lymphocytes % 12.8 D Monocytes % 9.2 Eosinophils % 0.3 D Basophils % 0.5 Sodium Potassium Chloride Carbon Dioxide Anion Gap BUN Creatinine Creat Clearance w eGFR Random Glucose Calcium Magnesium Total Bilirubin AST ALT Alkaline Phosphatase Creatine Kinase 126 Troponin I < 0.02 Total Protein Albumin Urine Color Yellow Urine Appearance Clear Urine pH 5.0 Ur Specific [place] 1.032 Urine Protein Negative Urine Glucose (UA) Negative Urine Ketones Trace H Urine Blood Negative Urine Nitrite Negative Urine Bilirubin Negative Urine Urobilinogen Negative Ur Leukocyte Esterase Negative 01/15/17 11:10 WBC RBC Hgb Hct MCV MCH MCHC RDW Plt Count MPV Neutrophils % Lymphocytes % Monocytes % Eosinophils % Basophils % Sodium 140 Potassium 4.0 Chloride 103 Carbon Dioxide 27 Anion Gap 10 BUN 13 Creatinine 0.8 D Creat Clearance w eGFR > 60 Random Glucose 124 H Calcium 8.8 Magnesium 2.4 Total Bilirubin 0.2 D AST 14 L D ALT 18 Alkaline Phosphatase 76 Creatine Kinase Troponin I < 0.02 Total Protein 6.5 Albumin 2.9 L Urine Color Urine Appearance Urine pH Ur Specific [place] Urine Protein Urine Glucose (UA) Urine Ketones Urine Blood Urine Nitrite Urine Bilirubin Urine Urobilinogen Ur Leukocyte Esterase HOSPITAL COURSE: Date of Admission:01/14/17 Date of Discharge: 01/15/17 Discharge Summary Reason For Visit: CHRONIC OBST PULM DISEASE,CHEST PAIN Current Active Problems COPD (chronic obstructive pulmonary disease) (Acute) Shortness of breath (Acute) Condition: Improved - Instructions Diet, Activity, Other Instructions: It is important you follow regularly with Dr. Craft. He is aware of the results of your CT scan which will need regular followup. Return to the emergency department for any new or worsening symptoms. Referrals: Conor Craft MD [Primary Care Provider] - Disposition: HOME - Home Medications Comprehensive Discharge Medication List: Ambulatory Orders Alprazolam 0.25 mg PO TID 11/29/16 Amlodipine Besylate 5 mg PO DAILY 11/29/16 Budesonide/Formeterol Fumarate [SYMBICORT 80/4.5mcg -] 2 inh PO BID 01/14/17 Tiotropium [place] [Spiriva] 2 inh IH BID 01/14/17
== END 2017-01-15 15:04 | disposition home or self-care (01) ==
LOC: JER 04:07 → JERBED 12:55 → J8W 16:26
PROVIDERS: ADMIT Internal Medicine; ATTEND Nurse Practitioner Acute Care
PROC: 3E013GC Introduction of Other Therapeutic Substance into Subcutaneous Tissue, Percutaneous Approach (ICD-10-PCS; principal; 2017-01-14)
PROC: 3E0F7GC Introduction of Other Therapeutic Substance into Respiratory Tract, Via Natural or Artificial Opening (ICD-10-PCS; 2017-01-14)
PROC: 3E0F7GC Introduction of Other Therapeutic Substance into Respiratory Tract, Via Natural or Artificial Opening (ICD-10-PCS; 2017-01-14)
PROC: 3E0F7GC Introduction of Other Therapeutic Substance into Respiratory Tract, Via Natural or Artificial Opening (ICD-10-PCS; 2017-01-14)
PROC: 3E0234Z Introduction of Serum, Toxoid and Vaccine into Muscle, Percutaneous Approach (ICD-10-PCS; 2017-01-14)
DX: J43.8 Other emphysema (principal); R06.2 Wheezing; Z99.81 Dependence on supplemental oxygen; I10 Essential (primary) hypertension; F41.9 Anxiety disorder, unspecified; J96.21 Acute and chronic respiratory failure with hypoxia; G47.30 Sleep apnea, unspecified; R07.9 Chest pain, unspecified; Z23 Encounter for immunization
CPT/HCPCS: 36415; 71010-TC; 71275-TC; 80053; 81003; 82550; 82803; 83605; 83735; 83880; 84484; 85025; 85610; 85730; 86850; 86900; 86901; 87040; 87086; 87804; 90471; 90688; 93005; 93010; 94640; 99284-25; G0378